=== PATIENT | male | born 2000 | race Caucasian/White ===

== ENCOUNTER 2023-03-13 21:06 | Emergency (ER) | payer SELFPAY ==
[~2023-03-13] VITALS: Ht 177.8 cm; Wt 136.4 kg
[2023-03-13 21:10] VITALS: BP 149/92; PULSE 93; RESP 14; TEMP 97.9; O2SAT 97
[2023-03-13] MEDS ORDERED: CEPH250T PO (21:55)
== END 2023-03-13 22:00 | disposition home or self-care (01) ==
LOC: VAS 21:06
DX: L60.0 Ingrowing nail (principal)
CPT/HCPCS: 99283